=== PATIENT | female | born 1985 | race Two or more races ===

== ENCOUNTER 2016-11-08 19:50 | Emergency (ER) | payer OTHER ==
[2016-11-08] MEDS ORDERED: IOPAMIDOL 370 (76%) 100 ML VIAL IV ONE (19:51)
[2016-11-08 20:22] LABS: URINE BILIRUBIN NEGATIVE (NEGATIVE); URINE BLOOD NEGATIVE (NEGATIVE); URINE GLUCOSE (UA) NEGATIVE (NEGATIVE); URINE LEUKOCYTE ESTERASE NEGATIVE (NEGATIVE); URINE NITRITE NEGATIVE (NEGATIVE); URINE PROTEIN NEGATIVE (NEGATIVE); URINE UROBILINOGEN NORMAL (0-1 mg/dl)
[2016-11-08 20:23] LABS: HCG,QUALITATIVE URINE NEGATIVE
[2016-11-08 20:26] LABS: URINE APPEARANCE CLEAR; URINE COLOR YELLOW
[2016-11-08 21:01] LABS: ABSOLUTE NEUTROPHIL COUNT 5.6 K/mm3 (1.8-7.7); BASO % 0.4 % (0.2-1.0); EOS # 0.2 (0.0-0.5); EOS % 1.6 % (0.9-2.9); HEMATOCRIT 41.3 % (37.0-47.0); IMM NEUT # 0.1 K/mm3 (0-0.2); IMM NEUT% 0.5 % (0-1); LYMPH # 3.1 (1.0-4.8); LYMPH % 32.1 % (15-45); MEAN CORPUSCULAR HEMOGLOBIN 25.2 pg (27.0-31.0); MEAN CORPUSCULAR HGB CONC 31.5 g/dl (33.0-37.0); MEAN PLATELET VOLUME 9.8 fl (7.4-10.4); MONO # 0.7 (0.0-0.8); NEUT % 58.4 % (43-75); PLATELET COUNT 300 K/mm3 (130-400); RED CELL DISTRIBUTION WIDTH 14.7 % (11.5-14.5)
[2016-11-08 21:20] LABS: ALB/GLOB RATIO 1.2 (>1.0); ALBUMIN 4.2 gm/dL (3.5-5.7); CALCIUM 9.5 mg/dL (8.6-10.3)
--- NOTE | 2016-11-09 07:59 | CT ---
Exam: CT angiogram chest with contrast Comparison: None History: Left-sided chest pain and elevated d-dimer. Technique: CT angiogram of the chest was obtained following the administration of 80 mL Isovue-370 intravenous contrast using a CT angiogram pulmonary embolism protocol which was supplemented with MIP reformations from the CT workstation. Findings: Examination is slightly limited due to timing of the contrast bolus and mild motion artifact. Nevertheless examination remains diagnostic. There is no evidence of acute pulmonary thromboembolic disease to the proximal subsegmental level. There is no significant mediastinal or hilar lymphadenopathy by size criteria. There is no pleural or pericardial effusion. Lungs are clear. Limited evaluation of the upper abdomen is without acute or concerning abnormality. Bones unremarkable. IMPRESSION: Negative CT angiogram of the chest. Preliminary report transmitted to the emergency department from [facility] at 2231 hours 11/09/2016.
== END 2016-11-08 23:20 | disposition home or self-care (01) ==
LOC: ED 19:50
DX: R07.9 Chest pain, unspecified (principal); R10.12 Left upper quadrant pain; R06.02 Shortness of breath
CPT/HCPCS: 83690; 85379; 81025; 85025; 80053; 81003; 71275; 99283 ×2; 93005; Q9967